=== PATIENT | female | born 1945 | race Caucasian/White ===

== ENCOUNTER 2018-05-29 08:01 | Outpatient (CLI) | payer OTHER | END 2018-05-29 08:09 | disposition home or self-care (01) | LOC: TOM 08:01 | DX: R59.0 Localized enlarged lymph nodes (principal); C73 Malignant neoplasm of thyroid gland | CPT/HCPCS: 70491; Q9965 ==

== ENCOUNTER 2018-06-19 13:42 | Outpatient (CLI) | payer OTHER ==
[~2018-06-19] VITALS: Ht 165.1 cm; Wt 82.1 kg
== END 2018-06-19 17:00 | disposition home or self-care (01) ==
LOC: OFIC 805 13:42
DX: E04.1 Nontoxic single thyroid nodule (principal); C73 Malignant neoplasm of thyroid gland

== ENCOUNTER 2021-05-05 18:08 | Emergency (ER) | payer OTHER ==
[~2021-05-05] VITALS: Ht 157.5 cm; Wt 85.7 kg
[2021-05-05] MEDS ORDERED: SYNTHROID88 MCG PO (18:32)
[2021-05-05] MEDS ORDERED: ATORVASTATIN CA20 MG PO (18:32)
[2021-05-05] MEDS ORDERED: METOPROLOL SUCC25 MG PO (18:32)
[2021-05-05] MEDS ORDERED: LANSOPRAZOLE30 MG PO (18:32)
== END 2021-05-05 22:16 | disposition home or self-care (01) ==
LOC: ER 18:08
DX: R10.32 Left lower quadrant pain (principal)

== ENCOUNTER 2022-07-04 09:54 | Emergency (ER) | payer OTHER ==
[~2022-07-04] VITALS: Ht 157.5 cm; Wt 78.5 kg
[~2022-07-04 09:54] MED LIST: ATORVASTATIN CA20 MG PO; LANSOPRAZOLE30 MG PO; METOPROLOL SUCC25 MG PO; SYNTHROID88 MCG PO
[2022-07-04] MEDS ORDERED: GABAPENTIN100 M2 PO (10:46)
[2022-07-04] MEDS ORDERED: SYNTHROID125 MCG PO (10:46)
== END 2022-07-04 13:56 | disposition home or self-care (01) ==
LOC: ER 09:54
DX: S09.8XXA Other specified injuries of head, initial encounter (principal); S00.83XA Contusion of other part of head, initial encounter; W19.XXXA Unspecified fall, initial encounter; Y93.89 Activity, other specified; Y92.488 Other paved roadways as the place of occurrence of the external cause; I10 Essential (primary) hypertension; E03.9 Hypothyroidism, unspecified; Z88.8 Allergy status to other drugs, medicaments and biological substances